=== PATIENT | female | born 1965 | race Caucasian/White ===

== ENCOUNTER 2016-12-25 10:29 | Inpatient (IN) | payer OTHER ==
[2016-12-24 10:34] VITALS: BMI 36.7
[~2016-12-25] VITALS: Ht 160 cm; Wt 88.5 kg
[2016-12-25] VITALS (20 sets, daily range): BP systolic 100–131; BP diastolic 53–66; PULSE 54–88; RESP 13–23; Ht 160 cm; Wt 88.5 kg
[~2016-12-25 10:29] MED LIST: HUMALOG INSULIN; LANTUS INSULIN; LIPITOR; METFORMIN
[2016-12-25] MEDS ORDERED: CEFAZOLIN 2 GM/50 ML (PMX) 50 ML IVPB SCH (11:00)
[2016-12-25] MEDS ORDERED: Metronidazole 500 MG in NS 100 ML IVPB SCH (11:00)
[2016-12-25] MEDS ORDERED: D5-NS + KCL 20 MEQ 1,000 ML IV SCH (11:00)
[2016-12-25] MEDS ORDERED: METF-406 PO (11:08)
[2016-12-25] MEDS ORDERED: INSU200I SQ (11:09)
[2016-12-25] MEDS ORDERED: BASAGLAR SQ (11:11)
[2016-12-25] MEDS ORDERED: ASPI-664 PO (11:11)
[2016-12-25] MEDS ORDERED: ATOR10TA65 PO (11:11)
[2016-12-25] MEDS ORDERED: LISI-313 PO (11:12)
[2016-12-25] MEDS ORDERED: THROMBIN 5000 UNIT VIAL ONE (12:10)
--- NOTE | 2016-12-25 12:10 | HPN ---
Date/Time of Note Date/Time of Note DATE: 12/25/16 TIME: 12:10 Interval H&P Admission Note Pt. seen H&P reviewed: No system changes JENNIFER GREGG MD Dec 25, 2016 12:10
[2016-12-25] MEDS ORDERED: VASOPRESSIN 20 UNITS INJ ONE (12:11)
[2016-12-25] MEDS ORDERED: METHYLENE BLUE 1% 10 ML INJ ONE (12:11)
[2016-12-25] MEDS ORDERED: ROCURONIUM 50 MG INJ ONE ×2 (12:27→13:13)
[2016-12-25] MEDS ORDERED: MIDAZOLAM 1 MG/ML 2 ML INJ ONE (12:27)
[2016-12-25] MEDS ORDERED: PROPOFOL 20 ML ONE (12:27)
[2016-12-25] MEDS ORDERED: METOCLOPRAMIDE 10 MG INJ ONE (12:27)
[2016-12-25] MEDS ORDERED: morphine SULFATE/PF (10 MG/10 ML) INJ ONE (12:28)
[2016-12-25] MEDS ORDERED: CEFAZOLIN 1 GM INJ ONE (12:32)
[2016-12-25] MEDS ORDERED: metroNIDAZOLE 500 MG/NS (PMX) 100 ML IVPB ONE ×2 (12:32)
--- NOTE | 2016-12-25 13:04 | HP ---
Date/Time of Note Date/Time of Note DATE: 12/25/16 TIME: 13:03 Assessment/Plan VTE Prophylaxis VTE Prophylaxis Intervention: SCD's Lines/Catheters IV Catheter Type (from [facility] Peripheral IV HPI/ROS Admit Date/Time Admit Date/Time Dec 25, 2016 at 10:29 Hx of Present Illness Srikanth Gregg M.D. [facility] History and Physical Examination Olivia Leary Date:Dec 23, 2016 :1965 Age: 51 Physicians: Treatment Technician Lead Caster Helper Oncologist Referring MD: History of the Present Illness: A 51 year old female with a gradually increasing pelvic mass. The mass is complex and largest measuring 4.3cm - Right side per Ultrasound. Ca 125- 21. She had one episode of postmonopausal spotting with a neg EMB marginal tissue but thickness 2.9 mm. Medical history/ROS: Diabetes, Hypertension, Anxiety, High Cholesterol. Surgical history: Gallbladder < 10yrs ago. Medications: 11/14/16 Humalog 100 unit/mL subcutaneous cartridge 1 unit inject below the skin TID Flu yes, 2015, Pneumococcal no, declined Allergies: 11/14/16 No known allergies (situation) 11/14/16 No known allergies (situation) Family Hx: non-contributary Social HX: non-contributary ROS: as above Colonoscopy: yes, 03/2016 Physical Examination Vitals (11/14/2016): Weight 200, Height 62.5, BP 124/80, BMI 36.6. General: Alert. HEENT: Pupils are equal, round, reactive to light and accommodation. Neck: Supple with no masses of lymphadenopathy. Breast: Deferred due to recent examination and responsibility of primary care physician. Chest: Clear to auscultation Heart: Normal rhythm with no murmur. Abdomen: Non tender, no ascites nor organomeglay. Pelvic exam: Right adnexal fullness, no cul-de-sac nodularity noted Rectal: confirmatory with pelvic exam. Neurological: Grossly intact Assessment: Pelvic mass Plan: Proceed with Laparoscopic BSO, possible LSH, possible staging possible UD on 12/25/2016. All risks and benefits of this procedure have been discussed in detail with the patient, as well as alternative treatment strategies and their implications. The patient is aware that there is some possibility of a blood transfusion and its associated risks and benefits. She wishes to proceed and gives her informed consent. Srikanth Gregg M.D. PMH/Family/Social Social History Smoking Status: Never smoker Exam/Review of Systems Vital Signs Vitals Vital Signs Date Time Temp Pulse Resp B/P Pulse Ox O2 Delivery O2 Flow Rate FiO2 12/25/16 11:33 97.9 61 16 131/65 97 Room Air Medications Medications Current Medications Potassium Chloride/Dextrose/ Sod Cl 1,000 ml @ 100 mls/hr Q10H IV ; Start 12/25 at 11:00; Stop 12/25/16 at 20:59 Metronidazole 100 ml @ 100 mls/hr PREOP IVPB ; Start 12/25/16 at 11:00; Stop at 16:00 Cefazolin Sodium/ Dextrose (Ancef 2 Gm/50 ml (Pmx)) 50 ml @ 100 mls/hr PREOP IVPB ; Start 12/25/16 at 11:00; Stop 12/25/16 at 16:00 SRIKANTH GREGG MD Dec 25, 2016 13:04
[2016-12-25] MEDS ORDERED: DEXAMETHASONE 4 MG/ML 1 ML INJ ONE (13:13)
[2016-12-25] MEDS: POTASSIUM CHLORIDE 20 MEQ in LACTATED RINGER'S 1,000 ML IV SCH (13:13)
[2016-12-25] MEDS ORDERED: morphine 2 MG INJ IV PRN (13:30)
[2016-12-25] MEDS ORDERED: DIPHENHYDRAMINE 50 MG INJ IV PRN ×3 (13:30→16:00)
[2016-12-25] MEDS ORDERED: CEFAZOLIN 1 GM in SOD CHLORIDE 0.9% 100 ML IVPB SCH (13:30)
[2016-12-25] MEDS ORDERED: ONDANSETRON 4 MG INJ IV PRN ×3 (13:30→16:00)
[2016-12-25] MEDS ORDERED: NEOSTIGMINE 3 MG/3 ML SYRINGE ONE (15:15)
[2016-12-25] MEDS ORDERED: GLYCOPYRROLATE 1 MG INJ ONE (15:15)
--- NOTE | 2016-12-25 15:35 | OPR ---
Date/Time of Note Date/Time of Note DATE: 12/25/16 TIME: 15:35 Operative Report Free Text/Dictation 2 OPERATIVE REPORT [facility] Name: Olivia Dyer Medical Date: 12/25/16 Preoperative Diagnosis: Adnexal mass and post menopausal Postoperative Diagnosis: 1- Bilateral adnexal masses; benign pathology pending 2- Extensive pelvic adhesions 3- Ureteral stricture Procedures: 1- Bilateral laparoscopic salpingoophorectomy 2- Bilateral ureteral dissection with repositioning 3- Enterolysis Surgeon: Dr. Bailey Electrical Repairer: Dr. Banerjee Anesthesia: General with regional Indications for procedure: The patient is a 51- year old female with a persistent 4- cm compelx cystic adnexal mass and discomfort with a normal CA-125. She was taken to the operating room to undertake a laparoscopic bilateral salpingoophorectomy with possible staging if needed after considering all options with risks and benefits. Findings and Summary After laparoscopic placement a complex cystic adnexal mass was noted with adherence to the sidewall with a smaller contralateral adnexa more densely adherent to the sidewall and pelvic adhesions. As the retroperitoneal anatomy was distorted due to the adnexia being densely adherent to the pelvic sidewalls a Name: Olivia Dyer Medical bilateral ureteral dissection was needed and the laparoscopic BSO was completed with a negative frozen section. Procedure: After being prepped and draped in the usual manner a sponge stick was placed in the vagina. Subsequently, we placed a 5 mm trocar cephlad to the umbilicus without incident and insufflated to 15 mm Hg, after which we and placed two 5 millimeter trocars laterally and omental adhesions densely adherent to the anterior abdominal wall that were lysed with the Thunderbeat and Omni enterolysis was completed as well and a 12 millimeter trocar inserted suprapubically. At this time any pelvic adhesions were lysed with sharp dissection and the Omni as needed. Subsequently we explored and noted a complex cystic adnexal mass was noted with adherence to the sidewall with a smaller contralateral adnexa also adherent to the sidewall and pelvic adhesions , distorting the retroperitoneal anatomy. Hence, on the of the pathology, the round ligament was transected with an Gyrus bipolar cutting forceps and the retroperitoneum opened parallel to the infundibulo-pelvic (IP) ligament with the Omni and Gyrus bipolar cutting forceps. The ureter was identified, and noted to be densely adherent to the pathology and somewhat distorted anatomically, hence requiring a ureteral dissection/repositioning as a separate procedure. The ureter was dissected away and repositioned with great care using the endo-dissector, with both the Omni and the Gyrus bipolar cutting forceps, after which the ureter was repositioned laterally. This process was carried out throughout the ureteral length in the pelvis and it peristalsed normally subsequently to being repositioned. Subsequently, the IP ligament was cauterized and transected with a Thunderbeat. The adnexia with adherent peritoneum was mobilized with a Omni while visualizing the ureter. Hence the andexia were fully by transaction of triple-pedicle with the Thunderbeat and Omni. The adnexia was sent to pathology. Subsequently, the contralateral adnexia was addressed in Name: [facility] the same manner. The round ligament was cauterized and transected with a Thunderbeat and the retroperitoneum opened parallel to the infundibulo-pelvic ( IP) ligament with the Thunderbeat and Omni as done on the contralateral side. Of note the smaller complex adnexal mass was more densely adherent to the sidewall and sigmoid colon and sharp dissection was used to free from the colon initially. Subsequently the retroperitoneum was further opened and the ureter was identified, and noted to be also be adherent to the peritoneum and broad ligament, requiring a ureteral dissection/repositioning as a separate procedure. The ureter was dissected away and repositioned with care using the endo-dissector, with both the Omni, after which the ureter was repositioned laterally. The Omni and the Gyrus bipolar cutting forceps were used to address any small bleeding areas with the ureter visualized. This process was carried out throughout the ureteral length in the pelvis and it peristalsed normally once repositioned. Subsequently, the IP ligament was taken with an endo-ALEKSANDRA due to the closeness of the sigmoid-colon. The adnexia with adherent peritoneum was mobilized with a Omni while visualizing the ureter. Hence the andexia were fully by transaction of triple-pedicle with a Thunderbeat. The adnexia was sent to pathology. After irrigating and assuring hemostasis the 12-millimeter trocar was removed and the fascia was closed with 0-vicryl using an endo-close devise. The gas was removed and the skin of all sites then closed with 5-0 plain gut suture suture. The EBL was 100ml and the patient tolerated the procedure well and left the OR in good condition. Jennifer Bailey M.D. JENNIFER BAILEY MD Dec 25, 2016 15:35
[2016-12-25] MEDS ORDERED: HYDROmorphONE 1 MG/ML SYG IV PRN ×3 (16:00)
[2016-12-25] MEDS ORDERED: HYDROmorphONE (0.2 MG/ML) 10ML SYG IV PRN ×3 (16:00)
[2016-12-25] MEDS ORDERED: MEPERIDINE 25 MG INJ IV PRN (16:00)
[2016-12-25] MEDS ORDERED: KETOROLAC 30 MG INJ IV PRN (16:00)
[2016-12-25] MEDS ORDERED: hydrALAzine 20 MG INJ IV PRN (16:00)
[2016-12-25] MEDS ORDERED: METOCLOPRAMIDE 10 MG INJ IV PRN (16:00)
[2016-12-25] MEDS ORDERED: NALOXONE (0.4 MG/ML) INJ IV PRN (16:00)
[2016-12-25] MEDS ORDERED: LABETALOL HCL 20MG INJ IV PRN (16:00)
[2016-12-25 16:53] LABS: BASOPHILS % 0.3 % (0.0-2.0); EOSINOPHILS # 0.1 10^3/ul (0.0-0.5); EOSINOPHILS % 0.8 % (0.0-7.0); HEMATOCRIT 43.9 % (37.0-47.0); HEMOGLOBIN 14.3 g/dl (12.0-16.0); MEAN CORPUSCULAR HEMOGLOBIN 28.3 pg (29.0-33.0); MEAN CORPUSCULAR HGB CONC 32.6 g/dl (32.0-37.0); MEAN CORPUSCULAR VOLUME 86.8 fl (82.0-101.0); MEAN PLATELET VOLUME 10.3 fl (7.4-10.4); MONOCYTE # 0.2 10^3/ul (0.3-0.9); MONOCYTES % 1.6 % (0.0-11.0); NEUTROPHIL # 7.2 10^3/ul (1.6-7.5); NEUTROPHILS % 68.3 % (39.0-77.0); PLATELET COUNT 184 10^3/UL (140-415); RED BLOOD COUNT 5.06 10^6/ul (4.20-5.40); RED CELL DISTRIBUTION WIDTH 11.9 % (11.5-14.5); WHITE BLOOD COUNT 10.5 10^3/ul (4.8-10.8)
[2016-12-25 17:15] LABS: CREATININE 0.5 mg/dl (0.44-1.00); POTASSIUM 4.1 mmol/L (3.5-5.1)
[2016-12-25] MEDS: CEFAZOLIN 1 GM/50 ML (PMX) 50 ML IVPB SCH (17:31)
[2016-12-25] MEDS: INSULIN ASPART [NOVOLOG] 3 ML PEN SC SCH ×2 (17:55→20:27)
[2016-12-25] MEDS: metroNIDAZOLE 500 MG/NS (PMX) 100 ML IVPB SCH (17:56)
[2016-12-25] MEDS: FAMOTIDINE 20 MG INJ IV SCH (20:28)
[2016-12-25] MEDS: INSULIN GLARGINE [LANtus] 3 ML PEN SC SCH (20:28)
[2016-12-26] MEDS: CEFAZOLIN 1 GM/50 ML (PMX) 50 ML IVPB SCH ×2 (00:43→06:53)
[2016-12-26] MEDS: POTASSIUM CHLORIDE 20 MEQ in LACTATED RINGER'S 1,000 ML IV SCH ×3 (00:45→15:48)
[2016-12-26] MEDS: metroNIDAZOLE 500 MG/NS (PMX) 100 ML IVPB SCH ×2 (01:33→11:10)
[2016-12-26] MEDS: ACCU-CHEK XX SCH (01:36)
--- NOTE | 2016-12-26 02:19 | HP ---
DATE OF ADMISSION: 12/25/2016 CHIEF COMPLAINT/HISTORY OF PRESENT ILLNESS: The patient is a 51- year-old female who was seen by Dr. Bailey as an outpatient due to gradually increasing pelvic mass. The patient says the mass was complex and largest measuring 4.3 cm on the right side. She also had an episode of postmenopausal spotting with negative endometrial biopsy. Thickness was 2.9, mm. The patient was brought into the hospital today and underwent bilateral laparoscopic salpingo-oophorectomy, bilateral ureter dissection with repositioning and enterolysis. The patient is being admitted for further evaluation and management. PAST MEDICAL HISTORY: Hypertension, diabetes, and dyslipidemia. The patient denies any chest pain. No reported vomiting. No reported leg edema. No reported weakness or numbness in any extremity. Other than postoperative pain, the rest of the review of systems are unremarkable. PAST SURGICAL HISTORY: Patient is status post laparoscopic cholecystectomy. ALLERGIES: NONE. SOCIAL HISTORY: No smoking. No alcohol. FAMILY HISTORY: Noncontributory for patient's condition. PHYSICAL EXAMINATION: GENERAL: Conscious, awake, and alert. VITAL SIGNS: Blood pressure 101/55, pulse 62, respiration 48, O2 sat 98 percent on 2 L cannula, temperature 98. HEENT: Atraumatic, normocephalic. Conjunctivae is normal. Oropharynx is clear. NECK: No mass. CHEST: Fairly clear. CV: S1, S2 normal. No murmur. ABDOMEN: Patient is status post surgery. EXTREMITIES: No leg edema. Pedal pulses palpable. SKIN: Without acute rash. GENERAL: The patient is awake, alert, with no gross focal deficit, although exam was limited due to recent surgery. LABORATORY DATA: WBC 10.5, hemoglobin 14.3, platelet 154. Sodium 141, potassium 4.1, BUN 6, creatinine 0.5, glucose 224. IMPRESSION: 1. Bilateral adnexal masses status post bilateral laparoscopic salpingo-oophorectomy, bilaterally ureter dissection with repositioning and enterolysis. 2. Diabetes. 3. Hypertension. 4. Dyslipidemia. PLAN: The patient is admitted on the medical floor. The patient will be started on a clear liquid diet. The patient will also be started on Ringer lactate and will start her on sliding scale insulin with a small dose of Lantus at nighttime . I will hold off on her other medications, especially antihypertensive, due to blood pressure being only 101. The patient will receive cefazolin and Flagyl as per protocol. Further recommendations will be the result of hospital course. We will continue to follow from medical standpoint. Postop care as per Dr. Bailey. Dictated By: Edi Shi MD /josé miguel/esmer /Document#: [id number]
[2016-12-26 05:27] LABS: BASOPHILS % 0.1 % (0.0-2.0); HEMATOCRIT 38.3 % (37.0-47.0); HEMOGLOBIN 12.4 g/dl (12.0-16.0); LYMPHOCYTES # 1.3 10^3/ul (0.8-2.9); LYMPHOCYTES % 10.2 % (15.0-51.0); MEAN CORPUSCULAR HEMOGLOBIN 27.9 pg (29.0-33.0); MEAN CORPUSCULAR HGB CONC 32.4 g/dl (32.0-37.0); MEAN CORPUSCULAR VOLUME 86.1 fl (82.0-101.0); MONOCYTE # 0.8 10^3/ul (0.3-0.9); MONOCYTES % 6.3 % (0.0-11.0); NEUTROPHIL # 10.6 10^3/ul (1.6-7.5); NEUTROPHILS % 82.9 % (39.0-77.0); PLATELET COUNT 191 10^3/UL (140-415); RED BLOOD COUNT 4.45 10^6/ul (4.20-5.40); RED CELL DISTRIBUTION WIDTH 12.2 % (11.5-14.5); WHITE BLOOD COUNT 12.8 10^3/ul (4.8-10.8)
[2016-12-26 06:00] LABS: ALBUMIN 3.4 g/dl (3.3-4.9); ALBUMIN/GLOBULIN RATIO 1.21; BILIRUBIN,INDIRECT 0.2 mg/dl (0-1.1); BILIRUBIN,TOTAL 0.2 mg/dl (0.2-1.3); CALCIUM 8.9 mg/dl (8.4-10.2); CREATININE 0.52 mg/dl (0.44-1.00); POTASSIUM 4.3 mmol/L (3.5-5.1); TOTAL PROTEIN 6.2 g/dl (6.1-8.1)
--- NOTE | 2016-12-26 07:38 | PN ---
Date/Time of Note Date/Time of Note DATE: 12/26/16 TIME: 07:36 Assessment/Plan VTE Prophylaxis VTE Prophylaxis Intervention: ambulation Lines/Catheters IV Catheter Type (from Nrsg): Peripheral IV Urinary Cath still in place: Yes Subjective 24 Hr Interval Summary Free Text/Dictation aNESTHESIA NOTE: a 51 YEAR OLD FEMALE S/P LAP bso UNDER gA AND SPINAL with duramorph is dong ok. pin is controlled. no N/V, itching, headache. back is clean no pain. care per hospitalist Exam/Review of Systems Vital Signs Vitals Vital Signs Date Time Temp Pulse Resp B/P Pulse Ox O2 Delivery O2 Flow Rate FiO2 12/25/16 23:35 98.3 74 20 110/59 98 12/25/16 20:25 Nasal Cannula 2.0 Intake and Output 12/25/16 12/25/16 12/26/16 15:00 23:00 07:00 Intake Total 1550 ml 1802 ml Output Total 1350 ml 700 ml Balance 200 ml 1102 ml Results Result Diagram: 12/26/16 0429 12/26/16 0429 Results 24 hrs Laboratory Tests Test 12/25/16 11:11 12/25/16 16:30 12/25/16 17:53 12/25/16 20:22 Bedside Glucose 169 225 H 250 H White Blood Count 10.5 Red Blood Count 5.06 Hemoglobin 14.3 Hematocrit 43.9 Mean Corpuscular Volume 86.8 Mean Corpuscular Hemoglobin 28.3 L Mean Corpuscular Hemoglobin Concent 32.6 Red Cell Distribution Width 11.9 Platelet Count 184 Mean Platelet Volume 10.3 Neutrophils % 68.3 Lymphocytes % 28.0 Monocytes % 1.6 Eosinophils % 0.8 Basophils % 0.3 Nucleated Red Blood Cells % 0.0 Neutrophils # 7.2 Lymphocytes # 3.0 H Monocytes # 0.2 L Eosinophils # 0.1 Basophils # 0.0 Nucleated Red Blood Cells # 0.0 Sodium Level 141 Potassium Level 4.1 Chloride Level 105 Carbon Dioxide Level 26 Anion Gap 14 Blood Urea Nitrogen 6 L Creatinine 0.50 Glucose Level 224 H Calcium Level 9.0 Test 12/26/16 01:34 12/26/16 04:29 Bedside Glucose 267 H White Blood Count 12.8 #H Red Blood Count 4.45 Hemoglobin 12.4 Hematocrit 38.3 Mean Corpuscular Volume 86.1 Mean Corpuscular Hemoglobin 27.9 L Mean Corpuscular Hemoglobin Concent 32.4 Red Cell Distribution Width 12.2 Platelet Count 191 Mean Platelet Volume 11.0 H Neutrophils % 82.9 H Lymphocytes % 10.2 L Monocytes % 6.3 Eosinophils % 0.0 Basophils % 0.1 Nucleated Red Blood Cells % 0.0 Neutrophils # 10.6 H Lymphocytes # 1.3 Monocytes # 0.8 Eosinophils # 0.0 Basophils # 0.0 Nucleated Red Blood Cells # 0.0 Sodium Level 138 Potassium Level 4.3 Chloride Level 104 Carbon Dioxide Level 26 Anion Gap 12 Blood Urea Nitrogen 10 Creatinine 0.52 Glucose Level 243 H Calcium Level 8.9 Total Bilirubin 0.2 Direct Bilirubin 0.00 Indirect Bilirubin 0.2 Aspartate Amino Transf (AST/SGOT) 47 H Alanine Aminotransferase (ALT/SGPT) 87 H Alkaline Phosphatase 70 Total Protein 6.2 Albumin 3.4 Globulin 2.80 Albumin/Globulin Ratio 1.21 Medications Medications Current Medications Metronidazole (Flagyl 500 Mg (Pmx)) 100 ml @ 100 mls/hr Q8H IVPB Last administered on 12/26/16 01:33; Admin Dose 100 MLS/HR; Start 12/25/16 at 13:30 ; Stop 12/26/16 at 13:29 Morphine Sulfate (morphine) 2 mg Q2H PRN IV PAIN LEVEL 6-10; Start 12/25/16 at 13:30 Acetaminophen/ Hydrocodone Bitart ([place] (5/325)) 1 tab Q6H PRN PO PAIN LEVEL 6 -10; Start 12/25/16 at 13:30 Diphenhydramine HCl (Benadryl) 25 mg Q6H PRN IV ITCHING; Start 12/25/16 at 13: 30 Ondansetron HCl (Zofran Inj) 4 mg Q6H PRN IV NAUSEA AND/OR VOMITING Last administered on 12/26/16 02:02; Admin Dose 4 MG; Start 12/25/16 at 13:30 Famotidine 20 mg 20 mg Q12 IV Last administered on 12/25/16 20:28; Admin Dose 20 MG; Start 12/25/16 at 21:00 Potassium Chloride 20 meq/ Lactated Ringer's 1,010 ml @ 100 mls/hr Q10H6M IV Last administered on 12/26/16 00:45; Admin Dose 100 MLS/HR; Start 12/25/16 at 13:13 Cefazolin Sodium (Ancef 1 Gm/50 ml (Pmx)) 50 ml @ 100 mls/hr Q8 IVPB Last administered on 12/26/16 06:53; Admin Dose 100 MLS/HR; Start 12/25/16 at 14:00 ; Stop 12/26/16 at 13:59 Naloxone HCl (Narcan) 0.1 mg Q2M PRN IV FOR RESP RATE 8 OR LESS; Start at 16:00; Stop 12/26/16 at 15:59 Ketorolac Tromethamine (Toradol) 30 mg Q6H PRN IV PAIN; Start 12/25/16 at 16:00 ; Stop 12/26/16 at 15:59 Hydromorphone HCl (Dilaudid) 1 mg Q3H PRN IV BREAKTHROUGH PAIN; Start 12/25/16 at 16:00; Stop 12/26/16 at 15:59 Hydromorphone HCl (Dilaudid) 0.2 mg Q3H PRN IV PAIN LEVEL 1-5; Start 12/25/16 at 16:00; Stop 12/26/16 at 15:59 Hydromorphone HCl (Dilaudid) 0.4 mg Q3H PRN IV PAIN LEVEL 6-10; Start 12/25/16 at 16:00; Stop 12/26/16 at 15:59 Diphenhydramine HCl (Benadryl) 25 mg Q6H PRN IV ITCHING; Start 12/25/16 at 16: 00; Stop 12/26/16 at 15:59 Ondansetron HCl (Zofran Inj) 4 mg Q6H PRN IV NAUSEA AND/OR VOMITING; Start at 16:00; Stop 12/26/16 at 15:59 Diagnostic Test (Pha) (Accu-Chek) 1 ea 02 XX Last administered on 12/26/16 01: 36; Admin Dose 1 EA; Start 12/26/16 at 02:00 Insulin Glargine (Lantus) 8 unit DAILY@20 SC Last administered on 12/25/16 20: 28; Admin Dose 8 UNIT; Start 12/25/16 at 20:00 KATHRINE VERMA MD Dec 26, 2016 07:38
[2016-12-26 08:13] VITALS: BP 97/60; RESP 18
[2016-12-26] MEDS: FAMOTIDINE 20 MG INJ IV SCH ×2 (09:05→21:10)
[2016-12-26] MEDS: INSULIN ASPART [NOVOLOG] 3 ML PEN SC SCH ×4 (09:10→21:00)
[2016-12-26] MEDS: HYDROCODONE/APAP (5/325) TAB PO PRN ×2 (11:13→17:37)
[2016-12-26] MEDS ORDERED: GLUCOSE GEL 15 GRAM TUBE PO PRN ×2 (16:30)
[2016-12-26] MEDS ORDERED: DEXTROSE 50% 50 ML SYRINGE IV PRN ×2 (16:30)
[2016-12-26] MEDS ORDERED: GLUCOSE GEL 15 GRAM TUBE BUCCAL PRN (16:30)
[2016-12-26] MEDS ORDERED: GLUCAGON 1 MG INJ IM PRN (16:30)
--- NOTE | 2016-12-26 16:32 | PN ---
Date/Time of Note Date/Time of Note DATE: 12/26/16 TIME: 16:27 Assessment/Plan Lines/Catheters IV Catheter Type (from Nrs): Peripheral IV Urinary Cath still in place: Yes Assessment/Plan Assessment/Plan 1. Bilateral adnexal masses status post bilateral laparoscopic salpingo- oophorectomy, bilaterally ureter dissection with repositioning and enterolysis. - per sx - tolerating full liquid diet - IVF 2. Diabetes. - Glycemic control 3. Hypertension. to Hypotension 4. Dyslipidemia. PLAN: The patient is admitted on the medical floor. The patient will be started on a clear liquid diet. The patient will also be started on Ringer lactate and will start her on sliding scale insulin with a small dose of Lantus at nighttime . I will hold off on her other medications, especially antihypertensive, due to blood pressure being only 101. The patient will receive cefazolin and Flagyl as per protocol. Further recommendations will be the result of hospital course. We will continue to follow from medical standpoint. Postop care as per Dr. Bailey. Subjective 24 Hr Interval Summary Free Text/Dictation afebrile, ambulated - tolerated well.C/o pain after sx. dw staff.. Patient requesting to go home tomorrow as if she tolerates mech soft diet before dc home. ENT: no complaints Respiratory: no complaints Cardiovascular: no complaints Gastrointestinal: pain Genitourinary: no complaints Musculoskeletal: no complaints Exam/Review of Systems Vital Signs Vitals Vital Signs Date Time Temp Pulse Resp B/P Pulse Ox O2 Delivery O2 Flow Rate FiO2 12/26/16 08:13 98.0 91 18 97/60 90 12/25/16 20:25 Nasal Cannula 2.0 Intake and Output 12/25/16 12/25/16 12/26/16 15:00 23:00 07:00 Intake Total 1550 ml 1802 ml Output Total 1350 ml 700 ml Balance 200 ml 1102 ml Exam Constitutional: alert, oriented, well developed Respiratory: diminished breath sounds, normal air movement Cardiovascular: nl pulses, regular rate and rhythm Gastrointestinal: soft Results Result Diagram: 12/26/16 0429 12/26/16 0429 Results 24 hrs Laboratory Tests Test 12/25/16 16:30 12/25/16 17:53 12/25/16 20:22 12/26/16 01:34 White Blood Count 10.5 Red Blood Count 5.06 Hemoglobin 14.3 Hematocrit 43.9 Mean Corpuscular Volume 86.8 Mean Corpuscular Hemoglobin 28.3 L Mean Corpuscular Hemoglobin Concent 32.6 Red Cell Distribution Width 11.9 Platelet Count 184 Mean Platelet Volume 10.3 Neutrophils % 68.3 Lymphocytes % 28.0 Monocytes % 1.6 Eosinophils % 0.8 Basophils % 0.3 Nucleated Red Blood Cells % 0.0 Neutrophils # 7.2 Lymphocytes # 3.0 H Monocytes # 0.2 L Eosinophils # 0.1 Basophils # 0.0 Nucleated Red Blood Cells # 0.0 Sodium Level 141 Potassium Level 4.1 Chloride Level 105 Carbon Dioxide Level 26 Anion Gap 14 Blood Urea Nitrogen 6 L Creatinine 0.50 Glucose Level 224 H Calcium Level 9.0 Bedside Glucose 225 H 250 H 267 H Test 12/26/16 04:29 12/26/16 08:50 12/26/16 13:01 White Blood Count 12.8 #H Red Blood Count 4.45 Hemoglobin 12.4 Hematocrit 38.3 Mean Corpuscular Volume 86.1 Mean Corpuscular Hemoglobin 27.9 L Mean Corpuscular Hemoglobin Concent 32.4 Red Cell Distribution Width 12.2 Platelet Count 191 Mean Platelet Volume 11.0 H Neutrophils % 82.9 H Lymphocytes % 10.2 L Monocytes % 6.3 Eosinophils % 0.0 Basophils % 0.1 Nucleated Red Blood Cells % 0.0 Neutrophils # 10.6 H Lymphocytes # 1.3 Monocytes # 0.8 Eosinophils # 0.0 Basophils # 0.0 Nucleated Red Blood Cells # 0.0 Sodium Level 138 Potassium Level 4.3 Chloride Level 104 Carbon Dioxide Level 26 Anion Gap 12 Blood Urea Nitrogen 10 Creatinine 0.52 Glucose Level 243 H Calcium Level 8.9 Total Bilirubin 0.2 Direct Bilirubin 0.00 Indirect Bilirubin 0.2 Aspartate Amino Transf (AST/SGOT) 47 H Alanine Aminotransferase (ALT/SGPT) 87 H Alkaline Phosphatase 70 Total Protein 6.2 Albumin 3.4 Globulin 2.80 Albumin/Globulin Ratio 1.21 Bedside Glucose 211 180 Medications Medications Current Medications Morphine Sulfate (morphine) 2 mg Q2H PRN IV PAIN LEVEL 6-10; Start 12/25/16 at 13:30 Acetaminophen/ Hydrocodone Bitart ([place] (5/325)) 1 tab Q6H PRN PO PAIN LEVEL 6 -10 Last administered on 12/26/16 11:13; Admin Dose 1 TAB; Start 12/25/16 at 13 :30 Diphenhydramine HCl (Benadryl) 25 mg Q6H PRN IV ITCHING; Start 12/25/16 at 13: 30 Ondansetron HCl (Zofran Inj) 4 mg Q6H PRN IV NAUSEA AND/OR VOMITING Last administered on 12/26/16 02:02; Admin Dose 4 MG; Start 12/25/16 at 13:30 Famotidine 20 mg 20 mg Q12 IV Last administered on 12/26/16 09:05; Admin Dose 20 MG; Start 12/25/16 at 21:00 Potassium Chloride/Lactated Ringer's (KCl/Lr) 1,010 ml @ 100 mls/hr Q10H6M IV Last administered on 12/26/16 15:48; Admin Dose 100 MLS/HR; Start 12/25/16 at 13:13 Diagnostic Test (Pha) (Accu-Chek) 1 ea 02 XX Last administered on 12/26/16 01: 36; Admin Dose 1 EA; Start 12/26/16 at 02:00 Insulin Glargine (Lantus) 8 unit DAILY@20 SC Last administered on 12/25/16 20: 28; Admin Dose 8 UNIT; Start 12/25/16 at 20:00 Miscellaneous Information 1 ea NOTE XX ; Start 12/26/16 at 16:30 Glucose (Glutose) 15 gm Q15M PRN PO DECREASED GLUCOSE; Start 12/26/16 at 16:30 Glucose (Glutose) 22.5 gm Q15M PRN PO DECREASED GLUCOSE; Start 12/26/16 at 16: 30 Dextrose (D50w Syringe) 25 ml Q15M PRN IV DECREASED GLUCOSE; Start 12/26/16 at 16:30 Dextrose (D50w Syringe) 50 ml Q15M PRN IV DECREASED GLUCOSE; Start 12/26/16 at 16:30 Glucagon (Glucagen) 1 mg Q15M PRN IM DECREASED GLUCOSE; Start 12/26/16 at 16:30 Glucose (Glutose) 15 gm Q15M PRN BUCCAL DECREASED GLUCOSE; Start 12/26/16 at 16 :30 SAWYER CARVALHO Dec 26, 2016 16:32
[2016-12-26] MEDS: INSULIN GLARGINE [LANtus] 3 ML PEN SC SCH (21:19)
[2016-12-26 22:07] VITALS: BP 113/55; RESP 20
[2016-12-27 00:40] VITALS: BP 126/87; RESP 20
[2016-12-27] MEDS: POTASSIUM CHLORIDE 20 MEQ in LACTATED RINGER'S 1,000 ML IV SCH ×2 (01:54→15:43)
[2016-12-27] MEDS: HYDROCODONE/APAP (5/325) TAB PO PRN ×3 (01:56→18:12)
[2016-12-27] MEDS: ACCU-CHEK XX SCH (02:00)
[2016-12-27 05:57] LABS: BASOPHILS % 0.2 % (0.0-2.0); EOSINOPHILS # 0.1 10^3/ul (0.0-0.5); EOSINOPHILS % 0.5 % (0.0-7.0); HEMATOCRIT 34.1 % (37.0-47.0); HEMOGLOBIN 11.3 g/dl (12.0-16.0); LYMPHOCYTES # 2.4 10^3/ul (0.8-2.9); LYMPHOCYTES % 19.8 % (15.0-51.0); MEAN CORPUSCULAR HEMOGLOBIN 28.9 pg (29.0-33.0); MEAN CORPUSCULAR HGB CONC 33.1 g/dl (32.0-37.0); MEAN CORPUSCULAR VOLUME 87.2 fl (82.0-101.0); MEAN PLATELET VOLUME 10.8 fl (7.4-10.4); MONOCYTE # 0.7 10^3/ul (0.3-0.9); MONOCYTES % 6.1 % (0.0-11.0); NEUTROPHIL # 8.9 10^3/ul (1.6-7.5); NEUTROPHILS % 73.1 % (39.0-77.0); PLATELET COUNT 159 10^3/UL (140-415); RED BLOOD COUNT 3.91 10^6/ul (4.20-5.40); RED CELL DISTRIBUTION WIDTH 12.3 % (11.5-14.5); WHITE BLOOD COUNT 12.2 10^3/ul (4.8-10.8)
[2016-12-27 06:19] LABS: CALCIUM 8.8 mg/dl (8.4-10.2); CREATININE 0.49 mg/dl (0.44-1.00)
[2016-12-27 07:49] VITALS: BP 119/56; RESP 18
[2016-12-27] MEDS: FAMOTIDINE 20 MG INJ IV SCH (08:31)
[2016-12-27] MEDS: INSULIN ASPART [NOVOLOG] 3 ML PEN SC SCH ×3 (08:41→17:57)
[2016-12-27 14:00] VITALS: BP 116/57; RESP 16
--- NOTE | 2016-12-27 14:50 | PDOCDIS ---
Discharge Instructions CONDITION Patient Condition: Stable HOME CARE INSTRUCTIONS: Diet Instructions: ACTIVITY: Activity Restrictions: Slowly Increase Activity Rest between Activity Avoid heavy lifting Do not Drive Do not operate Machinery Do not operate Power Tool Avoid Heavy Housework Bathing Restrictions: Sponge Bath FOLLOW UP/APPOINTMENTS Follow-up Plan FU with Primary MD X 1 WEEK FU with Surgery as recommended Patient/family verbalized understanding dc instructions [facility] tesfaye/staff REFERRALS Other Referrals FU with Primary MD X 1 WEEK Call 911 or go to the nearest hospital if symptoms get worse. Patient/friend verbalized understanding dc instructions [facility] tesfaye/staff SAWYER CARVALHO Dec 27, 2016 14:50
[2016-12-27] MEDS ORDERED: DOCUSATE SODIUM 100 MG CAP PO SCH (15:00)
[2016-12-27] MEDS ORDERED: BISACODYL (EC) 5 MG TAB PO PRN (15:00)
[2016-12-27] MEDS ORDERED: DOCU-144 PO (15:58)
--- NOTE | 2016-12-29 16:06 | OPR ---
Date/Time of Note Date/Time of Note DATE: 12/29/16 TIME: 16:05 Operative Report Free Text/Dictation OPERATIVE REPORT [facility] Name: Olivia [facility] Date: 12/25/16 Preoperative Diagnosis: Adnexal mass and post menopausal Postoperative Diagnosis: 1- Bilateral adnexal masses; benign pathology pending 2- Extensive pelvic adhesions 3- Ureteral stricture Procedures: 1- Bilateral laparoscopic salpingoophorectomy 2- Bilateral ureteral dissection with repositioning 3- Enterolysis Surgeon: Dr. Bailey Salesperson Furniture: Dr. Banerjee Anesthesia: General with regional Indications for procedure: The patient is a 51- year old female with a persistent 4- cm compelx cystic adnexal mass and discomfort with a normal CA-125. She was taken to the operating room to undertake a laparoscopic bilateral salpingoophorectomy with possible staging if needed after considering all options with risks and benefits. Findings and Summary After laparoscopic placement a complex cystic adnexal mass was noted with adherence to the sidewall with a smaller contralateral adnexa more densely adherent to the sidewall and pelvic adhesions. As the retroperitoneal anatomy was distorted due to the adnexa being densely adherent to the pelvic sidewalls a Name: Olivia [facility] bilateral ureteral dissection was needed and the laparoscopic BSO was completed with a negative frozen section. Procedure: After being prepped and draped in the usual manner a sponge stick was placed in the vagina. Subsequently, we placed a 5 mm trocar cephlad to the umbilicus without incident and insufflated to 15 mm Hg, after which we and placed two 5 millimeter trocars laterally and omental adhesions densely adherent to the anterior abdominal wall that were lysed with the Thunderbeat and Omni enterolysis was completed as well and a 12 millimeter trocar inserted suprapubically. At this time any pelvic adhesions were lysed with sharp dissection and the Omni as needed. Subsequently we explored and noted a complex cystic adnexal mass was noted with adherence to the sidewall with a smaller contralateral adnexa also adherent to the sidewall and pelvic adhesions , distorting the retroperitoneal anatomy. Hence, on the of the pathology, the round ligament was transected with an Gyrus bipolar cutting forceps and the retroperitoneum opened parallel to the infundibulo-pelvic (IP) ligament with the Omni and Gyrus bipolar cutting forceps. The ureter was identified, and noted to be densely adherent to the pathology and somewhat distorted anatomically, hence requiring a ureteral dissection/repositioning as a separate procedure. The ureter was dissected away and repositioned with great care using the endo-dissector, with both the Omni and the Gyrus bipolar cutting forceps, after which the ureter was repositioned laterally. This process was carried out throughout the ureteral length in the pelvis and it peristalsed normally subsequently to being repositioned. Subsequently, the IP ligament was cauterized and transected with a Thunderbeat. The adnexia with adherent peritoneum was mobilized with a Omni while visualizing the ureter. Hence the andexia were fully by transaction of triple-pedicle with the Thunderbeat and Omni. The adnexia was sent to pathology and benign of frozen section. Subsequently, the contralateral Name: [facility] adnexia was addressed in the same manner. The round ligament was cauterized and transected with a Thunderbeat and the retroperitoneum opened parallel to the infundibulo-pelvic (IP) ligament with the Thunderbeat and Omni as done on the contralateral side. Of note the smaller complex adnexal mass was more densely adherent to the sidewall and sigmoid colon and sharp dissection was used to free from the colon initially. Subsequently the retroperitoneum was further opened and the ureter was identified, and noted to be also be adherent to the peritoneum and broad ligament, requiring a ureteral dissection/ repositioning as a separate procedure. The ureter was dissected away and repositioned with care using the endo-dissector, with both the Omni, after which the ureter was repositioned laterally. The Omni and the Gyrus bipolar cutting forceps were used to address any small bleeding areas with the ureter visualized. This process was carried out throughout the ureteral length in the pelvis and it peristalsed normally once repositioned. Subsequently, the IP ligament was taken with an endo-ALEKSANDRA due to the closeness of the sigmoid-colon. The adnexia with adherent peritoneum was mobilized with a Omni while visualizing the ureter. Hence the adnexa were fully by transaction of triple-pedicle with a Thunderbeat. The adnexia was sent to pathology. After irrigating and assuring hemostasis the 12-millimeter trocar was removed and the fascia was closed with 0-vicryl using an endo-close devise. The gas was removed and the skin of all sites then closed with 5-0 plain gut suture suture. The EBL was 100ml and the patient tolerated the procedure well and left the OR in good condition. Jennifer Bailey M.D. Surgeon see signature line JENNIFER BAILEY MD Dec 29, 2016 16:06
== END 2016-12-27 18:45 | disposition home or self-care (01) | DRG 743 ==
LOC: REC 10:29 → MS1 17:08
PROC: 0TS84ZZ Reposition Bilateral Ureters, Percutaneous Endoscopic Approach (ICD-10-PCS; 2016-12-25)
PROC: 0UT24ZZ Resection of Bilateral Ovaries, Percutaneous Endoscopic Approach (ICD-10-PCS; 2016-12-25)
PROC: 0UT74ZZ Resection of Bilateral Fallopian Tubes, Percutaneous Endoscopic Approach (ICD-10-PCS; principal; 2016-12-25 12:00)
DX: N83.8 Other noninflammatory disorders of ovary, fallopian tube and broad ligament (principal); N13.5 Crossing vessel and stricture of ureter without hydronephrosis; I10 Essential (primary) hypertension; E11.9 Type 2 diabetes mellitus without complications; Z79.4 Long term (current) use of insulin; E78.5 Hyperlipidemia, unspecified; E78.00 Pure hypercholesterolemia, unspecified; Z78.0 Asymptomatic menopausal state
CPT/HCPCS: 80048; 80053; 82962; 85025; 86850; 86900; 86901; 86920; 87086; 88104; 88305; J0690; J1100; J1170; J1644; J1815; J2175; J2250; J2274; J2405; J2710; J2765; J3480; J7120